=== PATIENT | female | born 1990 | race Caucasian/White ===

== ENCOUNTER 2021-02-17 22:54 | Emergency (ER) | payer SELFPAY ==
[2021-02-18] MEDS ORDERED: ONDANSETRON 4 MG ODT TAB PO ONE (00:17)
[2021-02-18] MEDS ORDERED: FAMOTIDINE 20 MG/2 ML INJ IV ONE (03:15)
[2021-02-18] MEDS ORDERED: SODIUM CHLORIDE 0.9% 1000 ML 1,000 ML IV ONE (03:15)
[2021-02-18] MEDS ORDERED: diphenhydrAMINE 50 MG/ML VIAL IV ONE (03:15)
[2021-02-18] MEDS ORDERED: METOCLOPRAMIDE 10 MG/2 ML INJ IV ONE (03:15)
[2021-02-18 03:38] LABS: Hematocrit 45.4 % (30.3-42.9); Hemoglobin 14.9 gm/dl (10.1-14.3); Mean Corpuscular HGB Conc 33 % (30-34); Mean Corpuscular Volume 91 fl (79-97); Platelet Count 234 K/mm3 (140-440)
[2021-02-18 03:56] LABS: Alanine Aminotransferase 11 units/L (7-56); Albumin 4.5 g/dL (3.9-5); Blood Urea Nitrogen 14 mg/dL (7-17); Calcium 9.2 mg/dL (8.4-10.2); Hemolysis Index 10
[2021-02-18 04:05] LABS: BUN/Creatinine Ratio 35
--- NOTE | 2021-02-18 04:08 | Emergency Department Report ---
ED N/V/D HPI - General Chief complaint: Abdominal Pain Stated complaint: VOMITING Source: patient Mode of arrival: Ambulatory Limitations: No Limitations - History of Present Illness Initial comments: Patient is a nulliparous 30-year-old female with no past medical histo ry who presented to the ED with complaint of acute onset persistent intractable nausea and vomiting after eating at a restaurant 8 hours ago. Patient states that she has had up to 10 episodes of nausea and vomiting. Patient denies diarrhea, dysuria, urinary frequency and urgency, fever, chills, cough, chest pain, sore throat, headache, dizziness, syncope, vaginal bleeding, vaginal discharge or low back pain. MD complaint: nausea, vomiting, abdominal pain (Mild epigastric pain) -: Sudden, hour(s) (8) Description of Vomiting: food contents, watery Associated Abdominal Pain: Yes (Mild epigastric pain) Location: epigastric Radiation: none Severity: severe Pain Scale: 8 Quality: aching, dull Consistency: intermittent Improves with: none Worsens with: eating, vomiting Context: possible food poisoning Associated Symptoms: denies other symptoms, loss of appetite, malaise, nausea/vomiting. denies: myalgias, chest pain, cough, diaphoresis, headaches, rash, dysuria, weakness - Related Data Previous Rx's Medication Instructions Recorded Last Taken Type Dicyclomine [Bentyl] 20 mg PO QID #30 tablet 02/18/21 Unknown Rx Famotidine [Pepcid] 20 mg PO BID #40 tablet 02/18/21 Unknown Rx Ondansetron [Zofran Odt] 4 mg PO Q8HR PRN #20 tab.rapdis 02/18/21 Unknown Rx Allergies Allergy/AdvReac Type Severity Reaction Status Date / Time No Known Allergies Allergy Verified 02/18/21 00:12 ED Review of Systems ROS: Stated complaint: VOMITING Other details as noted in HPI Constitutional: denies: chills, fever Eyes: denies: eye pain, eye discharge, vision change ENT: denies: ear pain, throat pain Respiratory: denies: cough, shortness of breath, wheezing Cardiovascular: denies: chest pain, palpitations Endocrine: no symptoms reported Gastrointestinal: abdominal pain (Epigastric discomfort), nausea, vomiting. denies: diarrhea Genitourinary: denies: urgency, dysuria, discharge Musculoskeletal: denies: back pain, joint swelling, arthralgia Skin: denies: rash, lesions Neurological: denies: headache, weakness, paresthesias Psychiatric: denies: anxiety, depression Hematological/Lymphatic: denies: easy bleeding, easy bruising ED Past Medical Hx - Past Medical History Hx Asthma: Yes - Surgical History Past Surgical History?: No - Medications Home Medications: Home Medications Medication Instructions Recorded Confirmed Last Taken Type Dicyclomine [Bentyl] 20 mg PO QID #30 tablet 02/18/21 Unknown Rx Famotidine [Pepcid] 20 mg PO BID #40 tablet 02/18/21 Unknown Rx Ondansetron [Zofran Odt] 4 mg PO Q8HR PRN #20 tab.rapdis 02/18/21 Unknown Rx ED Physical Exam - General Limitations: No Limitations General appearance: alert, in no apparent distress - Head Head exam: Present: atraumatic, normocephalic, normal inspection - Eye Eye exam: Present: normal appearance, PERRL, EOMI Pupils: Present: normal accommodation - ENT ENT exam: Present: normal exam, normal orophraynx, mucous membranes moist, TM's normal bilaterally, normal external ear exam - Neck Neck exam: Present: normal inspection, full ROM - Respiratory Respiratory exam: Present: normal lung sounds bilaterally. Absent: respiratory distress, wheezes, rales, stridor, chest wall tenderness, accessory muscle use, decreased breath sounds - Cardiovascular Cardiovascular Exam: Present: normal rhythm, tachycardia, normal heart sounds. Absent: systolic murmur, diastolic murmur, rubs, gallop - GI/Abdominal GI/Abdominal exam: Present: soft, normal bowel sounds. Absent: distended, tenderness, guarding, hyperactive bowel sounds, hypoactive bowel sounds, organomegaly - Extremities Exam Extremities exam: Present: normal inspection, full ROM, normal capillary refill - Back Exam Back exam: Present: normal inspection, full ROM. Absent: tenderness, CVA tenderness (R), CVA tenderness (L), muscle spasm, paraspinal tenderness - Neurological Exam Neurological exam: Present: alert, oriented X3, CN II-XII intact, normal gait, reflexes normal - Psychiatric Psychiatric exam: Present: normal affect, normal mood - Skin Skin exam: Present: warm, dry, intact, normal color. Absent: rash ED Course Vital Signs 01/05/22 01/05/22 00:07 06:41 Temperature 99.4 F 100.8 F H Pulse Rate 119 H 101 H Respiratory 19 16 Rate Blood Pressure 131/83 Blood Pressure 102/66 [Right] O2 Sat by Pulse 100 98 Oximetry ED Medical Decision Making - Lab Data Result diagrams: 02/18/21 03:18 02/18/21 03:18 - Medical Decision Making This is a nulliparous 30-year-old female with no past medical history who presented to the ED with complaint of acute onset persistent intractable nausea and vomiting after eating at a restaurant 8 hours ago. Patient states that she has had up to 10 episodes of nausea and vomiting. In the ED, patient is alert and oriented x3 and is not in any distress but tachycardic and afebrile in triage. Patient was treated in the ED for nausea and vomiting, also given antacids, normal saline 1 L IV bolus and lab test results were reviewed and are all nonactionable. On reevaluation, patient nausea and vomiting resolved, patient passed oral fluid challenge in the ED. Patient was therefore discharged home on medications including antiemetics, antacids and antispasmodics and was advised to maintain a clear liquid diet for 12 to 24 hours, while taking medications as prescribed, and follow-up with her primary care physician in 5 to 7 days for reevaluation or return to the ED immediately if symptoms get worse. - Differential Diagnosis Viral gastroenteritis; dehydration; GERD; gastritis; Critical care attestation.: If time is entered above; I have spent that time in minutes in the direct care of this critically ill patient, excluding procedure time. ED Disposition Clinical Impression: Viral gastroenteritis, Nausea and vomiting in adult patient Disposition: HOME / SELF CARE / HOMELESS Is pt being admited?: No Does the pt Need Aspirin: No Condition: Stable Instructions: Viral Gastroenteritis, Adult, [id number], Nausea and Vomiting, Adult, [id number], Abdominal Pain (ED) Additional Instructions: Your symptoms are likely due to viral gastroenteritis following food poisoning episode. Therefore maintain a clear liquid diet for 12 to 24 hours, drink plenty of fluids, follow-up with your primary care physician in 7 to 10 days for reevaluation. Return to the ED immediately if symptoms get worse. Prescriptions: Dicyclomine [Bentyl] 20 mg PO QID #30 tablet Famotidine [Pepcid] 20 mg PO BID #40 tablet Ondansetron [Zofran Odt] 4 mg PO Q8HR PRN #20 tab.rapdis PRN Reason: Nausea Referrals: [facility] [Provider Group] - 7-10 days Forms: Work/School Release Form(ED) Time of Disposition: 04:06 Print Language: LITHUANIAN
[2021-02-18 06:44] VITALS: BP 102/66
[2021-02-18] MEDS ORDERED: ACETAMINOPHEN 325 MG/10.15 ML ORAL LIQD UNIT DOSE PO ONE (06:46)
[2021-02-18 07:45] LABS: Band Neutrophils # (Manual) 0.3 K/mm3; Basophils % (Manual) 0 % (0.0-1.8); Platelet Estimate Consistent w Auto; RBC Morphology Normal; Total Cells Counted 100
== END 2021-02-18 06:39 | disposition home or self-care (01) ==
LOC: ED 22:54
DX: A08.4 Viral intestinal infection, unspecified (principal); J45.909 Unspecified asthma, uncomplicated
CPT/HCPCS: 36415; 80053; 83690; 84703; 85007; 85025; 96361; 96374; 96375; 99283; J1200; J2765; J3490; J7030; Q0162